=== PATIENT | male | born 1990 | race African-American/Black ===

== ENCOUNTER 2018-09-13 20:33 | Emergency (ER) | payer SELFPAY ==
--- NOTE | 2018-09-13 21:24 | RADIOLOGY REPORT (SQ) ---
EXAM DESCRIPTION: XR HAND 3 OR MORE VIEWS COMPLETED DATE/TME: 09/13/2018 21:00 CLINICAL HISTORY: 27 years, Male, LACERATION COMPARISON: None. NUMBER OF VIEWS: 3 TECHNIQUE: 3 view left hand LIMITATIONS: None. FINDINGS: Negative for acute fracture or dislocation. Soft tissue injury of the thumb. No radiopaque foreign body IMPRESSION: Soft tissue injury of the thumb. Otherwise negative exam copyright 2010 [employer]- All Rights Reserved
[2018-09-13] MEDS ORDERED: LIDOCAINE 1% INJ-PF (10 MG/ML) 30 ML SDV INJ ONE (23:07)
--- NOTE | 2018-09-13 23:08 | ER Document Report ---
ED Wound - General Chief Complaint: Laceration Stated Complaint: THUMB INJURY Time Seen by Provider: 09/13/18 22:59 Notes: 27-year-old male to the emergency department chief complaint of laceration to the left thumb. Patient had an accidental injury to the medial aspect of the left thumb. Cannot get it stopped bleeding. Denies any other injuries. Tetanus shot in 2 years ago. Able to move his thumb without dysfunction. Does have moderate amount of pain. Patient is intact. Is a clean knife. TRAVEL OUTSIDE OF THE [place] IN LAST 30 DAYS: No - HPI Patient complains to provider of: Laceration Onset/Duration: Sudden Quality of pain: Throbbing Severity: Moderate Pain Level: 1 Context: Injury Skin Color: Normal Capillary refill: < 3 seconds Sensations intact: Yes Distal pulses present: Yes Associated Symptoms: None - Related Data Allergies/Adverse Reactions: No Known Allergies Allergy (Unverified 09/13/18 22:07) Past Medical History - General Information source: Patient - Never now - Social History Smoking Status: Current Every Day Smoker Chew tobacco use (# tins/day): No Frequency of alcohol use: Social Drug Abuse: Marijuana Lives with: Spouse/Significant other Family History: Reviewed & Not Pertinent Patient has suicidal ideation: No Patient has homicidal ideation: No Pulmonary Medical History: Reports: Hx Pneumonia - x2 Renal/ Medical History: Denies: Hx Peritoneal Dialysis Past Surgical History: Reports: Hx Orthopedic Surgery - brief writer ring finger Review of Systems - Review of Systems Constitutional: denies: Fever, Malaise, Weakness Cardiovascular: denies: Chest pain, Palpitations, Heart racing Respiratory: denies: Cough, Hurts to breathe, Short of breath Musculoskeletal: See HPI, Other - Laceration to the left thumb Skin: Other - Abrasion to the left thumb.. denies: Dryness, Lesions Hematologic/Lymphatic: denies: Anemia, Easy bleeding, Easy bruising Neurological/Psychological: denies: Sensory change, Weakness, Numbness Physical Exam - Vital signs Vitals: Temp Pulse Resp BP Pulse Ox 98.5 F 62 16 137/72 H 99 09/13/18 20:54 09/13/18 20:54 09/13/18 20:54 09/13/18 20:54 09/13/18 20:54 Interpretation: Normal - Respiratory Respiratory status: No respiratory distress Chest status: Nontender Breath sounds: Normal Chest palpation: Normal - Cardiovascular Rhythm: Regular Heart sounds: Normal auscultation Murmur: No - Extremities General upper extremity: Other - Upper extremity demonstrates a 3 cm long linear laceration in the left thumb at the proximal interphalangeal joint. No exposed tendon. Neurovascularly intact. Sensation intact. Refill less than 3 seconds. General lower extremity: Normal inspection, Nontender, Normal color, Normal ROM, Normal temperature, Normal weight bearing. No: Israel's sign - Neurological Neuro grossly intact: Yes Orientation: AAOx4 Sensory: Normal - Skin Skin Temperature: Warm Skin Moisture: Dry Skin Color: Other - 3 cm linear laceration to the left thumb. No exposed tendo n. No arterial bleed. No exposed nerves. Course - Re-evaluation Re-evalutation: 09/14/18 00:25 Laceration was complex laceration which required extensive suturing. Was able to close and get bleeding to stop. Patient advised for 24-hour follow-up in 2 weeks suture removal. Clean and dry for the next 48 hours. Return for any w orsening symptoms or concerns. - Vital Signs Vital signs: Temp Pulse Resp BP Pulse Ox 98.5 F 62 16 137/72 H 99 09/13/18 20:54 09/13/18 20:54 09/13/18 20:54 09/13/18 20:54 09/13/18 20:54 Procedures - Laceration/Wound Repair Left Head Thumb Time completed: 00:27 Wound length (cm): 3 Wound's Depth, Shape: Into muscle, Linear Laceration pre-procedure: Betadine prep applied, Shur-Clens applied Anesthetic type: 1% Lidocaine Volume Anesthetic (mLs): 6 Wound explored: Clean Wound Debrided: Minimal Wound Repaired With: Other - Patient received 2 running this sutures with 40 proline. An additional 3 simple interrupted sutures. Suture Size/Type: 4:0, Prolene Layer Closure?: No Post-procedure wound care: Sterile dressing applied, Splint applied Post-procedure NV exam normal: Yes Complications: No Discharge - Discharge Clinical Impression: Laceration of thumb Qualifiers: Encounter type: initial encounter Damage to nail status: without damage Foreign body presence: without foreign body Laterality: left Qualified Code(s): S61.012A - Laceration without foreign body of left thumb without damage to nail, initial encounter Condition: Good Disposition: HOME, SELF-CARE Instructions: Laceration Care ([facility]) Additional Instructions: Return in 24 hours for repeat evaluation as this was an extensive laceration to your thumb. Keep clean and dry for a minimum of 48 hours. In the event that you notice any redness, swelling, drainage, persistent bleeding, loss of function of the thumb or for any other concerns we are here for you. Please feel free to return for repeat evaluation. In the event that the function of your thumb does not appear to be perfect you may benefit from a evaluation by hand specialist. This has been provided. Forms: Return to Work Referrals: TONYA DANIEL, [ACTIVE STAFF] - Follow up as needed
[2018-09-14 00:37] VITALS: BP 118/75
== END 2018-09-14 00:45 | disposition home or self-care (01) ==
LOC: ER 20:33
PROC: 0HQGXZZ Repair Left Hand Skin, External Approach (ICD-10-PCS; principal; 2018-09-13)
DX: S61.012A Laceration without foreign body of left thumb without damage to nail, initial encounter (principal); M79.645 Pain in left finger(s); W45.8XXA Other foreign body or object entering through skin, initial encounter; F17.200 Nicotine dependence, unspecified, uncomplicated
CPT/HCPCS: 99283; 73130; 12002; J3490

== ENCOUNTER 2018-10-07 14:13 | Emergency (ER) | payer SELFPAY ==
[2018-10-07 14:23] VITALS: BP 132/78
--- NOTE | 2018-10-07 17:10 | ER Document Report ---
HPI - HPI Patient complains to provider of: suture removal Time Seen by Provider: 10/07/18 14:42 Onset: Other - 09/13/18 Pain Level: 1 Context: Patient presents to the emergency department with complaints of laceration s uture repair to the left thumb. Patient reports he cut himself with a knife. He reports he came here and had sutures placed. Review of the record shows he was here on September 13 for suture. Patient is here today to have the sutures removed. He denies pain. Has full range of motion to his thumb. Associated Symptoms: None Exacerbated by: Denies Relieved by: Denies Similar symptoms previously: No Recently seen / treated by doctor: No Past Medical History - General Information source: Patient - Social History Smoking Status: Current Every Day Smoker Cigarette use (# per day): Yes Frequency of alcohol use: Occasional Drug Abuse: Marijuana Family History: Reviewed & Not Pertinent Patient has suicidal ideation: No Patient has homicidal ideation: No Pulmonary Medical History: Reports: Hx Pneumonia - x2 Renal/ Medical History: Denies: Hx Peritoneal Dialysis Past Surgical History: Reports: Hx Orthopedic Surgery - quality assurance intern ring finger Vertical Provider Document - CONSTITUTIONAL Agree With Documented VS: Yes Exam Limitations: No Limitations General Appearance: WD/WN, No Apparent Distress - INFECTION CONTROL TRAVEL OUTSIDE OF THE [place] IN LAST 30 DAYS: No - HEENT HEENT: Atraumatic, Normocephalic - NECK Neck: Supple - RESPIRATORY Respiratory: No Respiratory Distress - CARDIOVASCULAR Cardiovascular: Regular Rate - MUSCULOSKELETAL/EXTREMETIES Musculoskeletal/Extremeties: MAEW, FROM, Non-Tender - full range of motion, no c/o numbness - NEURO Level of Consciousness: Awake, Alert, Appropriate Motor/Sensory: No Motor Deficit - DERM Integumentary: Warm, Dry, Laceration - Site benign to left thumb, sutures intact no erythema no swelling no warmth or discharge. Good cap refill Course - Re-evaluation Re-evalutation: 10/07/18 17:24 Patient was instructed to really monitor the site return for any signs of infection. Dictation of this chart was performed using voice recognition software; therefore, there may be some unintended grammatical errors. - Vital Signs Vital signs: Temp Pulse Resp BP Pulse Ox 98.6 F 81 18 132/78 H 100 10/07/18 14:21 10/07/18 14:21 10/07/18 14:21 10/07/18 14:21 10/07/18 14:21 Discharge - Discharge Clinical Impression: Visit for suture removal Condition: Stable Disposition: HOME, SELF-CARE Instructions: Suture Removal Additional Instructions: *You have been treated for suture removal *Monitor the site for signs of infection such as pain, redness, swelling, warmth *Keep the area clean *Follow up with a primary care provider within one week for recheck *Return to ED for signs of infection, worsening condition, changes, needs Monitor your blood pressure. Your blood pressure was elevated today. This may be because you were anxious, in pain or because you need medication. It is important to follow up with your primary care provider for full evaluation. Forms: Elevated Blood Pressure
== END 2018-10-07 17:44 | disposition home or self-care (01) ==
LOC: ER 14:13
DX: S61.012D Laceration without foreign body of left thumb without damage to nail, subsequent encounter (principal); W26.0XXD Contact with knife, subsequent encounter; F17.210 Nicotine dependence, cigarettes, uncomplicated; F12.10 Cannabis abuse, uncomplicated